=== PATIENT | female | born 1945 | race Caucasian/White ===

== ENCOUNTER 2019-02-18 22:24 | Emergency (ER) | payer MEDICARE ==
[2019-02-18] MEDS ORDERED: IPRATROPIUM/ALBUTEROL 0.5-2.5 MG/3 ML AMPUL NEB ONE ×2 (22:28→22:30)
[2019-02-18] MEDS ORDERED: ALBUTEROL SULFATE 0.083% NEB 2.5 MG/3 ML AMPUL NEB ONE ×2 (22:28→22:30)
--- NOTE | 2019-02-18 22:31 | ER Document Report ---
ED General - General Stated Complaint: TROUBLE BREATHING Time Seen by Provider: 02/18/19 22:30 Notes: Patient is a 73-year-old female with a past medical history of COPD with baseline oxygen dependence of 2 L who presents due to respiratory distress. Patient is visiting from out of town, EMS was contacted as patient was having increasing shortness of breath. States that her symptoms were initially very severe, constant, but have improved with treatment. EMS reports the patient was initially very short of breath, no air movement to the bases bilaterally but has improved significant after the receiving 2 g of magnesium, 125 mg of Solu- Medrol, and continuous duo nebulizers. The patient states that she likewise feels much better after receiving these treatments. States that she had not felt well all day, somewhat short of breath throughout the day but denies any associated chest pain or chest tightness. States this feels very similar to when she had COPD exacerbations in the past. She does not currently smoke. Has been unable to see her primary care doctor today secondary to being out of town. Denies a cough, fever or constitutional symptoms. No increased sputum production. - Related Data Allergies/Adverse Reactions: Penicillins Allergy (Verified 02/19/19 00:08) Past Medical History - General Information source: Patient - Social History Smoking Status: Former Smoker Frequency of alcohol use: None Drug Abuse: None Lives with: Family Family History: Reviewed & Not Pertinent Review of Systems - Review of Systems Notes: Constitutional: Negative for fever. HENT: Negative for sore throat. Eyes: Negative for visual changes. Cardiovascular: Negative for chest pain. Respiratory: Positive shortness of breath Gastrointestinal: Negative for abdominal pain, vomiting or diarrhea. Genitourinary: Negative for dysuria. Musculoskeletal: Negative for back pain. Skin: Negative for rash. Neurological: Negative for headaches, weakness or numbness. 10 point ROS negative except as marked above and in HPI. Physical Exam - Vital signs Vitals: Pulse Ox 92 02/18/19 22:32 Interpretation: Tachycardic, Tachypneic Notes: PHYSICAL EXAMINATION: GENERAL: Appears mildly uncomfortable with shortness of breath but in no overt distress HEAD: Atraumatic, normocephalic. EYES: Pupils equal round and reactive to light, extraocular movements intact, sclera anicteric, conjunctiva are normal. ENT: nares patent, oropharynx clear without exudates. Moist mucous membranes. NECK: Normal range of motion, supple without lymphadenopathy LUNGS: Mild tachypnea, scattered wheezing in all lung boone somewhat diminished at the bases bilaterally. HEART: Regular tachycardia without murmurs ABDOMEN: Soft, nontender, normoactive bowel sounds. No guarding, no rebound. No masses appreciated. EXTREMITIES: Normal range of motion, no pitting or edema. No cyanosis. NEUROLOGICAL: No focal neurological deficits. Moves all extremities spontaneously and on command. PSYCH: Normal mood, normal affect. SKIN: Warm, Dry, normal turgor, no rashes or lesions noted. Course - Re-evaluation Re-evalutation: 02/18/19 22:31 Patient presents with a mild exacerbation of their baseline COPD. I do not suspect an acute alternative pathology at this time based on history and exam including acute pulmonary embolus, ACS, pneumothorax, or aortic dissection. She denies any chest pain or pleuritic discomfort, nothing in her clinical picture to indicate need for workup for pulmonary embolus. Mild wheezing at time of presentation but vitals do not show significant hypoxemia or tachypnea. No retractions. Patient did clinically improve after receiving nebulizers here in the emergency department. Chest x-ray without evidence of an acute pneumonia although does show possible pneumonitis versus pulmonary edema pattern at the bases bilaterally. Of note the patient states that she was hospitalized 2 weeks ago, was told that she had the exact same chest x-ray and follow-up x-ray did not show any improvement after diuresis. She has no known history of CHF. She has a pulmonary appointment scheduled in 1 week and is planning to discuss this chest x-ray finding at that time. I do not believe patient requires antibiotic coverage as she has no fever, cough or constitutional symptoms that would indicate that this is a pneumonia picture. Laboratories do not show acute kidney injury or significant leukocytosis. Patient does have some mild tac hycardia at time of reassessment but reports that her baseline heart rate is in the upper 90s she did receive 9 mL's of DuoNeb's as well as 10 mg of albuterol which likely accounts for this tachycardia. Patient did have some desaturation with ambulation as well as visible shortness of breath which she states was more than her normal. I did discuss with the patient the option of hospitalization particularly given that she continues to have desaturation with ambulation on home oxygen. I emphasized that this would be my preferred option particular given her desaturation with ambulation and advised that it appears that she is having more of a severe COPD exacerbation than she originally believed. The patient does care for her granddaughter who has Down syndrome and states that she can not be hospitalized as the granddaughter would be unable to tolerate her hospitalization and there is nobody else to help watch over the child at this time as they are visiting out of town. I did offer and recommend hospitalization and reviewed the risks of discharge at this time but the patient again quite insistent that she would prefer to go home, take oral steroids and use her home nebulizers. When she is lying in the bed she is saturating 94-95% on her normal 2 L of nasal cannula and states overall she feels much better than when she arrived. She understands the risks of discharge including worsening of her clinical condition, development of respiratory distress, and possible deterioration of her respiratory status to the point where she could but would like to proceed with discharge. She has capacity, verbalizes risks back to me, gives a clear reasoning for which she cannot be hospitalized and is making a decision based off of what she feels is the best thing for her and her family at this time. At this time will discharge with return precautions and follow-up recommendations. Verbal discharge instructions given a the bedside and opportunity for questions given. Medication warnings reviewed. Patient states clearly that she will immediately return to the emergency department for any worsening her symptoms. I have advised follow-up with her primary doctor as soon as possible. - Vital Signs Vital signs: Temp Pulse Resp BP Pulse Ox 98.2 F 115 H 26 H 111/66 91 L 02/19/19 02:00 02/19/19 02:00 02/19/19 02:00 02/19/19 02:00 02/19/19 02:00 - Laboratory Result Diagrams: 02/18/19 22:40 02/18/19 22:40 Laboratory results interpreted by me: 02/18/19 02/18/19 02/18/19 22:40 22:40 22:40 Seg Neutrophils % 78.7 H Lymphocytes % 11.9 L Absolute Neutrophils 8.3 H BUN 23 H Est GFR (Non-Af Amer) 58 L NT-Pro-B Natriuret Pep 1490 H - Diagnostic Test Radiology reviewed: Image reviewed, Reports reviewed Radiology results interpreted by me: 02/19/19 01:10 Chest x-ray: Bilateral scarring pattern at the bases of the lungs bilaterally Discharge - Discharge Clinical Impression: Abnormal chest x-ray, COPD exacerbation, Shortness of breath Condition: Fair Disposition: HOME, SELF-CARE Additional Instructions: You were seen for a COPD exacerbation. Your symptoms improved with treatment here in the emergency department. However, it is very important that you return to the emergency department immediately if you began to have worsening difficulty breathing that does not respond to your normal home nebulizers. You are also being sent home on a five-day course of steroids that you should start taking tomorrow. Please also follow closely with your primary care physician. You should return to emergency department if you develop fever greater than 101, persistent cough, persistent vomiting, pass out, or any other symptoms that are concerning to you. As we discussed please follow-up your chest x-ray results that appear to have been ongoing for at least 2 weeks based on your report with your business analyst ecommerce. They may wish to obtain a chest CT and/or perform a bronchoscopy Prescriptions: Prednisone [Deltasone 20 mg Tablet] 2 tab PO DAILY 5 Days tablet
[2019-02-18 22:59] LABS: ABSOLUTE BASOPHILS # (AUTO) 0.1 10^3/uL (0.0-0.2); ABSOLUTE EOSINOPHILS # (AUTO) 0.1 10^3/uL (0.0-0.6); ABSOLUTE LYMPHOCYTES (AUTO) 1.3 10^3/uL (0.5-4.7); ABSOLUTE MONOCYTES (AUTO) 0.8 10^3/uL (0.1-1.4); ABSOLUTE NEUT (AUTO) 8.3 10^3/uL (1.7-8.2); BASOPHILS % (AUTO) 0.6 % (0-2); EOSINOPHILS % (AUTO) 0.8 % (0-6); HEMOGLOBIN 13.6 g/dL (12.0-15.5); LYMPHOCYTES % (AUTO) 11.9 % (13-45); MEAN CORPUSCULAR HEMOGLOBIN 32.7 pg (27.0-33.4); MEAN CORPUSCULAR HGB CONC 34.9 g/dL (32.0-36.0); MEAN CORPUSCULAR VOLUME 94 fl (80-97); PLATELET COUNT 268 10^3/uL (150-450); RED BLOOD COUNT 4.17 10^6/uL (3.72-5.28); RED CELL DISTRIBUTION WIDTH 12.9 % (11.5-14.0); SEGMENTED NEUTROPHILS % (AUTO) 78.7 % (42-78); TOTAL CELLS COUNTED % (AUTO) 100 %; VENOUS BLOOD BASE EXCESS 1.3 mmol/L; VENOUS BLOOD HCO3 26.5 mmol/L (20-32); VENOUS BLOOD PCO2 43.7 mmHg (35-63); VENOUS BLOOD PH 7.4 (7.30-7.42); WHITE BLOOD COUNT 10.5 10^3/uL (4.0-10.5)
--- NOTE | 2019-02-18 23:06 | RADIOLOGY REPORT (SQ) ---
EXAM DESCRIPTION: [facility]: XR CHEST 1 VIEW CLINICAL HISTORY: 73 years Female, sob, copd COMPARISON: None. FINDINGS: Lungs are hyperinflated, typical for COPD. There are diffusely increased fine interstitial markings in both lungs, mostly in the lower lobes. No consolidation. No pneumothorax or pleural effusion. Mediastinum is within normal limits for this positioning. Bony structures are unremarkable. IMPRESSION: 1. Bilateral lower lobe interstitial edema, indeterminate for cardiogenic pulmonary edema versus an atypical interstitial pneumonitis. 2. Hyperinflation, suggesting COPD.
[2019-02-18 23:15] LABS: ANION GAP 11 (5-19); BLOOD UREA NITROGEN 23 mg/dL (7-20); CALCIUM 9.4 mg/dL (8.4-10.2); CARBON DIOXIDE 26 mmol/L (22-30); CHLORIDE 101 mmol/L (98-107); GLUCOSE 104 mg/dL (75-110); SODIUM 138.2 mmol/L (137-145)
--- NOTE | 2019-02-18 23:41 | EKG REPORT ---
SEVERITY:- ABNORMAL ECG - SINUS TACHYCARDIA PROBABLE LVH WITH SECONDARY REPOL ABNRM : Confirmed by: Kurtis Fraga 18-Feb-2019 23:40:39
[2019-02-19 00:35] LABS: TROPONIN I 0.033 ng/mL
[2019-02-19] MEDS ORDERED: DOXYCYCLINE HYCLATE 100 MG TABLET PO ONE (00:35)
[2019-02-19] MEDS ORDERED: PREDNISONE 20 MG TABLET PO ONE (01:44)
[2019-02-19 02:07] VITALS: BP 111/66
== END 2019-02-19 02:07 | disposition home or self-care (01) ==
LOC: ER 22:24
DX: J44.1 Chronic obstructive pulmonary disease with (acute) exacerbation (principal); Z99.81 Dependence on supplemental oxygen; R00.0 Tachycardia, unspecified; R91.8 Other nonspecific abnormal finding of lung field; R06.02 Shortness of breath; Z87.891 Personal history of nicotine dependence; Z88.0 Allergy status to penicillin
CPT/HCPCS: 93005; 94640 ×2; 99285; 36415; 85025; 80048; 84484; 82803; 83880; 71045; 93010; A9270 ×3; J7512; J7620